=== PATIENT | male | born 1955 | race Caucasian/White ===

== ENCOUNTER 2022-08-26 19:35 | Emergency (ER) | payer MEDICARE, OTHER, SELFPAY ==
[2022-08-26 19:36] VITALS: BP 154/83; PULSE 58; RESP 18; TEMP 36.4; O2SAT 98; BMI 25.7
--- NOTE | 2022-08-26 19:45 | CT_ITS ---
STUDY: CT BRAIN WITHOUT CONTRAST REASON FOR EXAM: Male, 67 years old. Trauma RADIATION DOSAGE (If Supplied By Facility): CTDIvol = ( 44.99 ) mGy, DLP = ( 812.98 ) mGycm TECHNIQUE: Transaxial CT imaging of the brain was performed without administration of intravenous contrast material. Individualized dose optimization techniques were used for this CT. COMPARISON: No relevant priors. FINDINGS: Normal soft tissue structures. Normal calvarium. Normal size ventricles and extra-axial spaces for the patient''s age. Normal white matter tracts of the cerebral hemispheres. Normal basal ganglia and thalami. Normal brainstem. Normal cerebellum. There is no intracranial hemorrhage. There are no findings of an acute ischemic infarction. Normal visualized paranasal sinuses. CT/Brain/Head without Contrast IMPRESSION: Normal unenhanced CT scan of the brain. Electronically Signed: Marek Walker MD at 20:40 EDT ,
--- NOTE | 2022-08-26 19:50 | EX.ED.GENINJ ---
HPI History of Present Illness Chief Complaint: Head Injury Informant: patient Narrative Narrative: Patient presents with head injury. The patient was sitting in a chair. He is watching a kids baseball game. He got hit in the left mormonism with a baseball. He states he leaned over to the lateral right side. He felt dazed but does not think he actually lost consciousness. It is sore in the area but nowhere else. He did not fall. He has no nausea vomiting. No neurologic symptoms. No visual changes. 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 No anticoagulation at all. He is acting normally per family. [facility] Allergy/AdvReac Type Severity Reaction Status Date / Time No Known Allergies Allergy Verified 08/26/22 19:38 ROS ROS ED ROS Narrative A complete review of systems was performed and is negative except as documented in the history of present illness. Some specific details below. Constitutional: No recent fevers or chills. He felt fine prior to the injury. EYE: No discharge, visual complaints, or pain. He has pain in the mormonism but not ocular. ENT: No difficulty swallowing. He does have a contusion on the left side of the mormonism. Minimal swelling. CV: No chest pain or palpitations. Respiratory: Not short of breath GI: No abdominal pain. No nausea vomiting Musculoskeletal: No recent trauma other than head. No pains. No swelling. Skin: No rash. Nondiaphoretic. Does have a contusion on the head. Neuro: No weakness or numbness. Endocrine: No polyuria or polydipsia. EXAM Physical Exam Narrative Exam Narrative: CONSTITUTIONAL: Patient is nontoxic in appearance. The patient looks comfortable. He is sitting in the chair awake alert and consistent and in his story HEENT: Patient does have slight contusion on the left side of his mormonism. Minimal swelling. No bony tenderness. Zygoma is not tender. No anterior facial tenderness. EYES: No conjunctival injection. No proptosis. No limitation of gaze. CARDIOVASCULAR: Regular rate. Regular rhythm. No notable murmur. No JVD. RESPIRATORY: No respiratory distress. Breathing is unlabored. GASTROINTESTINAL: Not distended. Bowel sounds are normal. No tenderness. MUSCULOSKELETAL: Atraumatic. No peripheral edema. No cord. No tenderness along the deep venous system. No asymmetry. NEUROLOGICAL: Patient is alert and appropriate. No focal deficit noted. SKIN: No noted rashes. No diaphoresis. Contusion as above. PSYCHIATRIC: Patient is calm. Mood is appropriate. Const Vital Signs: 08/26/22 19:36 Temperature 97.6 F L Temperature Source Temporal Pulse Rate 58 L Respiratory Rate 18 Blood Pressure 154/83 H Blood Pressure Mean 106 Pulse Ox 98 Oxygen Delivery Method Room Air MDM MDM MDM Narrative Medical decision making narrative: I independent interpretation the patient's CT of the head without contrast including bony images shows no acute fracture. No significant soft tissue stranding or swelling is noted. Final reading by radiology is normal unenhanced CT scan of the brain. Patient's recheck. He is still awake alert appropriate no nausea vomiting and neurologically intact. We will get him home. Radiography Diagnostic Testing: Clinical Impression(s) from Imaging Studies Brain CT 08/26/22 19:45 IMPRESSION: Normal unenhanced CT scan of the brain. Electronically Signed: Marek Walker MD at 20:40 EDT , Discharge Plan Triage Chief Complaint: Head Injury ED Provider: Heber Henderson Dx/Rx/DC Orders Clinical Impression: Closed head injury Instructions: ED Concussion Primary Care Provider: Virgilio Nash Referrals: Virgilio Nash MD [Primary Care Provider] - 1 Week if not improving NOT,DEFINED [Non-Staff] - Disposition Disposition: Home, Self Care
== END 2022-08-26 21:19 | disposition home or self-care (01) ==
PROVIDERS: Emergency Provider Emergency Medicine; PCP Family Medicine; Visit Provider Emergency Medicine
DX: S09.8XXA Other specified injuries of head, initial encounter (principal); W21.03XA Struck by baseball, initial encounter
CPT/HCPCS: 70450; 99282